=== PATIENT | female | born 1945 | race Caucasian/White ===

== ENCOUNTER → 2025-03-28 | Outpatient (CLI) | payer MEDICARE, OTHER | END | disposition home or self-care (01) | LOC: RT 13:18 | PROVIDERS: ATTEND Internal Medicine | DX: I08.3 Combined rheumatic disorders of mitral, aortic and tricuspid valves (principal) | CPT/HCPCS: 93306 ==

== ENCOUNTER 2025-04-12 11:01 | Day surgery (SDC) | payer MEDICARE, OTHER ==
[~2025-04-12] VITALS: Ht 167.6 cm; Wt 77.6 kg
[2025-04-12] VITALS (11 sets, daily range): BP systolic 116–146; BP diastolic 62–80; PULSE 67–80; RESP 16; TEMP 97–97.9; O2SAT 80–97
[~2025-04-12 11:01] MED LIST: ASCO500T4 PO; ASPI-667 PO; BENADRYL ONE; CHOL100011 PO; FURO20TA3 PO; HEPARIN ONE; HYDR200T65 PO; LEVO88TA5 PO; LISI5TAB18 PO; NS 1000ML 1,000 ML ONE; PANT40TA6 PO; SOLU-MEDROL ONE; SUBLIMAZE 100MCG/2ML ONE; SULF500T36 PO; VERSED ONE; XYLOCAINE ONE; ZOLP5TAB6 PO
[2025-04-12] MEDS: NS 1000ML 1,000 ML IV SCH (11:35)
[2025-04-12] MEDS: SOLU-MEDROL IV ONE (11:45)
[2025-04-12] MEDS: BENADRYL IV ONE (11:45)
[2025-04-12 11:51] LABS: BASOPHIL # 0.0 10^3/uL (0.0-0.1); BASOPHIL % 0.8 % (0.1-1.2); EOSINOPHIL # 0.5 10^3/uL (0.0-0.2); EOSINOPHIL % 11.8 % (0.0-5.0); HEMATOCRIT(ML) 38.9 % (36.0-46.0); IG % 0.00 % (0.00-0.50); LYMPHOCYTES # 1.07 10^3/uL1 (1.0-4.8); LYMPHOCYTES % 28.0 % (24.0-44.0); MEAN CORP HGB 28.0 pg (26-34); MEAN CORP HGB CONCENTRATION 31.6 g/dL (33-36.5); MEAN CORP VOLUME 88.6 fL (78-100); MONOCYTES # 0.5 10^3/uL (0.3-0.8); MONOCYTES % 13.1 % (5.0-12.0); NEUTROPHIL # 1.8 10^3/uL (1.8-7.7); NEUTROPHILS % 46.3 % (41.0-85.0); RED BLOOD CELL 4.39 10^6/uL (4.00-5.20); RED CELL DISTRIBUTION WIDTH 17.8 % (11.5-14.5); WHITE BLOOD CELL 3.8 10^3/uL (4.5-11.0)
[2025-04-12 12:15] LABS: INR 1.0; PROTHROMBIN PROTIME 9.9 SEC (9.3-11.6)
[2025-04-12 12:16] LABS: ALANINE AMINOTRANSFERASE(ML) 27.0 U/L (12-78); ALBUMIN(ML) 4.0 g/dL (3.4-5.0); CREATININE SERUM 0.73 mg/dL (0.59-1.40); EST GFR, NON-AA 77.3 (>/=60)
[2025-04-12] MEDS ORDERED: NITROGLYCERIN 25MG/D5W 250ML 250 ML IV ONE (12:59)
[2025-04-12] MEDS ORDERED: VERSED ONE (13:36)
[2025-04-12] MEDS ORDERED: SUBLIMAZE 100MCG/2ML ONE (13:36)
== END 2025-04-12 16:54 | disposition home or self-care (01) ==
LOC: SDC 11:01
PROVIDERS: ATTEND Internal Medicine
DX: R94.39 Abnormal result of other cardiovascular function study (principal); I25.10 Atherosclerotic heart disease of native coronary artery without angina pectoris; I35.0 Nonrheumatic aortic (valve) stenosis; I10 Essential (primary) hypertension; K21.9 Gastro-esophageal reflux disease without esophagitis; M19.90 Unspecified osteoarthritis, unspecified site; Z86.2 Personal history of diseases of the blood and blood-forming organs and certain disorders involving the immune mechanism; Z83.3 Family history of diabetes mellitus; Z82.49 Family history of ischemic heart disease and other diseases of the circulatory system; Z91.041 Radiographic dye allergy status; Z79.899 Other long term (current) drug therapy; Z98.890 Other specified postprocedural states
CPT/HCPCS: 93458; 80053; 85025; 36415; 85610; 85730; 93005; 99153 ×2; 99152; J7030; J1644 ×2; C1894 ×3; A6258 ×3; C1887; J1200; J3490; J2250 ×2; J3010 ×2; J2919; A4618; C1769 ×2; C1760; C1766; Q9967; 76937; J2930